=== PATIENT | female | born 2000 | race Caucasian/White ===

== ENCOUNTER 2019-02-09 17:35 | Emergency (ER) | payer MEDICAID ==
[~2019-02-09] VITALS: Ht 162.6 cm; Wt 73.0 kg
[2019-02-09 17:39] VITALS: BP 132/85
[2019-02-09] MEDS ORDERED: LIDOCAINE-MPF 1%, 5ML ONE (18:16)
[2019-02-09] MEDS ORDERED: LIDOCAINE-MPF 1%, 5ML INFIL ONE (18:30)
[2019-02-09] MEDS ORDERED: BACITRACIN ZINC OINT 500U/GM, 0.9 GM ONE (18:47)
--- NOTE | 2019-02-09 19:10 | NUR ---
DC EDUCATION PROVIDED, PT DEMONSTRATES UNDERSTANDING. PT AMBULATED STEADILY TO DC WITH RN AND FAMILY
== END 2019-02-09 19:12 | disposition home or self-care (01) ==
LOC: ED 17:50
DX: S91.012A Laceration without foreign body, left ankle, initial encounter (principal); F17.200 Nicotine dependence, unspecified, uncomplicated; X58.XXXA Exposure to other specified factors, initial encounter; Y93.89 Activity, other specified; Y92.89 Other specified places as the place of occurrence of the external cause; Y99.8 Other external cause status
CPT/HCPCS: 99283

== ENCOUNTER 2019-03-03 23:13 | Emergency (ER) | payer MEDICAID ==
[~2019-03-03] VITALS: Ht 165.1 cm; Wt 75.6 kg
[2019-03-03 23:14] VITALS: BP 137/68
[2019-03-03 23:58] LABS: BASOPHILS # (AUTO) 0.04 x10^3/uL (0-0.1); BASOPHILS % (AUTO) 1 % (0-1); EOSINOPHILS # (AUTO) 0.32 x10^3/uL (0-0.4); EOSINOPHILS % (AUTO) 4 % (1-7); LYMPHOCYTES # (AUTO) 1.88 x10^3/uL (1-3.4); LYMPHOCYTES % (AUTO) 22 % (22-44); MD NO; MEAN CORPUSCULAR HEMOGLOBIN 30.7 pg (27.0-34.8); MEAN CORPUSCULAR HGB CONC 34.2 g/dL (32.4-35.8); MEAN CORPUSCULAR VOLUME 89.7 fL (80-100); MONOCYTES # (AUTO) 0.74 x10^3/uL (0.2-0.8); MONOCYTES % (AUTO) 8 % (2-9); NEUTROPHILS # (AUTO) 5.75 x10^3/uL (1.8-6.8); NEUTROPHILS % (AUTO) 66 % (42-75); PLATELET COUNT 329 x10^3/uL (130-400); RED BLOOD COUNT 4.31 x10^6/uL (3.82-5.3); RED CELL DISTRIBUTION WIDTH 12.3 % (9.6-15.2)
[2019-03-04 00:09] LABS: ANION GAP 7 mmol/L (5-15); CALCIUM 8.7 mg/dL (8.5-10.1); CHLORIDE 112 mmol/L (98-107)
== END 2019-03-04 01:05 | disposition home or self-care (01) ==
LOC: ED 23:59
DX: J20.8 Acute bronchitis due to other specified organisms (principal)
CPT/HCPCS: 36415; 71045; 80048; 85025; 99284

== ENCOUNTER 2019-12-06 18:50 | Emergency (ER) | payer MEDICAID ==
[~2019-12-06] VITALS: Ht 162.6 cm; Wt 60.0 kg
[2019-12-06 18:53] VITALS: BP 118/72
--- NOTE | 2019-12-06 19:07 | NUR ---
PT HERE WITH C/O SORE THROAT AND EAR ACHE X 2 DAYS.
[2019-12-06] MEDS ORDERED: IBUPROFEN 200 MG TABLET ONE (19:09)
[2019-12-06] MEDS ORDERED: DEXAMETHASONE 4 MG TABLET ONE (19:09)
--- NOTE | 2019-12-06 19:12 | NUR ---
PT MEDICATED PER ORDERS.
[2019-12-06] MEDS ORDERED: DEXAMETHASONE 4 MG TABLET PO ONE (19:30)
[2019-12-06] MEDS ORDERED: IBUPROFEN 200 MG TABLET PO ONE (19:30)
[2019-12-06 19:37] LABS: RAPID INFLUENZA A Negative (Negative); RAPID INFLUENZA B Negative (Negative)
--- NOTE | 2019-12-06 19:45 | NUR ---
Patient/Caregiver given discharge instructions and they have confirmed that they understand the instructions. Patient ambulatory with steady gait.
== END 2019-12-06 20:10 | disposition home or self-care (01) ==
LOC: ED 20:07
DX: J06.9 Acute upper respiratory infection, unspecified (principal); H69.83 Other specified disorders of Eustachian tube, bilateral; Z72.9 Problem related to lifestyle, unspecified
CPT/HCPCS: 87081; 87400; 87880; 99283